=== PATIENT | female | born 1950 | race African-American/Black ===

== ENCOUNTER 2018-06-20 06:36 | Emergency (ER) | payer BC, MEDICARE ==
[~2018-06-20] VITALS: Ht 170.2 cm; Wt 59.4 kg
[2018-06-20] MEDS ORDERED: MORPHINE SULFATE 4 MG/ML CPJ (NOT FOR IM USE) IV STA (07:59)
[2018-06-20] MEDS ORDERED: ONDANSETRON HCL 4MG/2ML INJ IV STA (07:59)
[2018-06-20] MEDS ORDERED: SODIUM CHLORIDE 0.9% 1,000 ML IV ONE (07:59)
[2018-06-20 09:07] LABS: CHLORIDE 93 mEq/L (98-107)
[2018-06-20 09:08] LABS: INR 1.1; PROTHROMBIN TIME 11.2 sec (9.1-11.1)
[2018-06-20 09:33] LABS: BASOPHILS % 0.2 % (0.0-2.0); EOSINOPHILS % 0.1 % (0.0-5.0); HEMOGLOBIN. 7.6 g/dL (12.0-16.0); MEAN CORPUSCULAR HEMOGLOBIN 26.1 pg (28.0-32.0); MEAN CORPUSCULAR VOLUME 79.3 fL (81.0-99.0); MEAN PLATELET VOLUME 8.3 fl (7.4-10.4); NEUTROPHILS % 67.7 % (40.0-76.0); PLATELET 324 x1000/uL (130-400)
[2018-06-20 11:07] LABS: CLARITY URINE CLEAR (CLEAR); COLOR URINE YELLOW (YELLOW); KETONES URINE 2+ (NEGATIVE); LEUKOCYTE ESTERASE URINE 1+ (NEGATIVE); NITRITE URINE POSITIVE (NEGATIVE); OCCULT BLOOD URINE NEGATIVE (NEGATIVE); PH URINE 6.5 (4.5-8.0); PROTEIN URINE NEGATIVE (NEGATIVE); SPECIFIC GRAVITY URINE 1.004 (1.005-1.030); UROBILINOGEN URINE 0.2 E.U./dL (0.2-1.0)
[2018-06-20 12:26] LABS: PLATELET ESTIMATE NORMAL
[2018-06-20 13:17] VITALS: BP 160/52
[2018-06-20 17:25] LABS: HAPTOGLOBIN 111 mg/dL (30-200)
== END 2018-06-20 14:11 | disposition home or self-care (01) ==
LOC: ER 09:51
DX: N39.0 Urinary tract infection, site not specified (principal); D64.9 Anemia, unspecified; I10 Essential (primary) hypertension
CPT/HCPCS: 36415; 74176; 80053; 81003; 83010; 83615; 83690; 85025; 85044; 85610; 96374; 96375; 99284; J2270; J2405; J7030